=== PATIENT | male | born 2000 | race Caucasian/White ===

== ENCOUNTER 2024-03-20 00:49 | Emergency (ER) | payer OTHER ==
[~2024-03-20] VITALS: Ht 172.7 cm; Wt 79.5 kg
[2024-03-20 01:04] VITALS: TEMP 98.2
[2024-03-20] MEDS ORDERED: fentaNYL 50 MCG/ML 2 ML VIAL IV ONE (02:00)
[2024-03-20] MEDS ORDERED: Iohexol 300 - 100 ML VIAL IV ONE (02:45)
[2024-03-20] MEDS ORDERED: NS 100 ML IV SCH (02:45)
[2024-03-20] MEDS ORDERED: Acetaminophen 500 MG TAB PO ONE (03:00)
[2024-03-20 08:18] VITALS: BP 113/60; PULSE 54
== END 2024-03-20 08:18 | disposition home or self-care (01) ==
LOC: COL.ER 00:49
DX: S00.03XA Contusion of scalp, initial encounter (principal); S00.83XA Contusion of other part of head, initial encounter; S20.229A Contusion of unspecified back wall of thorax, initial encounter; S03.2XXA Dislocation of tooth, initial encounter; Y04.8XXA Assault by other bodily force, initial encounter; Y93.01 Activity, walking, marching and hiking; Y92.480 Sidewalk as the place of occurrence of the external cause
CPT/HCPCS: Q9967